=== PATIENT | male | born 1990 | race Caucasian/White ===

== ENCOUNTER 2016-11-15 10:51 | Emergency (ER) | payer SELFPAY ==
--- NOTE | 2016-11-15 11:04 | ER Document Report ---
ED Medical Screen (RME) - General Stated Complaint: EYE IRRITATION Mode of Arrival: Ambulatory Information source: Patient Notes: c/o right eye irritation that started 4 days ago. 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 Endorses eye redness, FB sensation, excessive tearing but denies drainage or blurred vision or changes in vision. Wears contact but was not wearing them at the time of incident and has not worn it since. Has tried visine which did provide mild relief. I have greeted and performed a rapid initial assessment of this patient. A comprehensive ED assessment and evaluation of the patient, analysis of test results and completion of the medical decision making process will be conducted by additional ED providers. TRAVEL OUTSIDE OF THE [place] IN LAST 30 DAYS: No - Related Data Allergies/Adverse Reactions: No Known Allergies Allergy (Unverified 03/11/13 01:29) Past Medical History - Immunizations Hx Diphtheria, Pertussis, Tetanus Vaccination: No Physical Exam - Vital signs Vitals: Temp Pulse Resp BP Pulse Ox 97.5 F 73 16 124/72 100 11/15/16 10:57 11/15/16 10:57 11/15/16 10:57 11/15/16 10:57 11/15/16 10:57 Course - Vital Signs Vital signs: Temp Pulse Resp BP Pulse Ox 97.5 F 73 16 124/72 100 11/15/16 10:57 11/15/16 10:57 11/15/16 10:57 11/15/16 10:57 11/15/16 10:57
[2016-11-15] MEDS ORDERED: TETRACAINE HCL 0.5% OPH SOLN 2 ML OD ONE (11:15)
[2016-11-15] MEDS ORDERED: KETOROLAC TROMETHAMINE 0.45% 4 DROP/0.4 ML DROPERETTE OD ONE (12:43)
[2016-11-15] MEDS ORDERED: BESIFLOXACIN HCL 0.6% OPH SUSP 5 ML BOTTLE OD ONE (12:43)
--- NOTE | 2016-11-15 12:48 | ER Document Report ---
ED General - General Chief Complaint: Eye Injury Stated Complaint: EYE IRRITATION Mode of Arrival: Ambulatory TRAVEL OUTSIDE OF THE [place] 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 Patient does wear glasses and contacts. Denies any. Drainage this date blurry vision with tearing and photophobia. Denies any other injuries. - Related Data Allergies/Adverse Reactions: No Known Allergies Allergy (Verified 11/15/16 11:02) Past Medical History - General Information source: Patient - Social History Smoking Status: Current Every Day Smoker Chew tobacco use (# tins/day): No Frequency of alcohol use: None Drug Abuse: None Family History: Reviewed & Not Pertinent Patient has suicidal ideation: No Patient has homicidal ideation: No Renal/ Medical History: Denies: Hx Peritoneal Dialysis Surgical Hx: Negative - Immunizations Hx Diphtheria, Pertussis, Tetanus Vaccination: Yes - 5-6 years ago Review of Systems - Review of Systems Constitutional: No symptoms reported EENT: Eye pain Cardiovascular: No symptoms reported Respiratory: No symptoms reported Gastrointestinal: No symptoms reported Genitourinary: No symptoms reported Male Genitourinary: No symptoms reported Musculoskeletal: No symptoms reported Skin: No symptoms reported Hematologic/Lymphatic: No symptoms reported Neurological/Psychological: No symptoms reported -: Yes All other systems reviewed and negative Physical Exam - Vital signs Vitals: Temp Pulse Resp BP Pulse Ox 97.5 F 73 16 124/72 100 11/15/16 10:57 11/15/16 10:57 11/15/16 10:57 11/15/16 10:57 11/15/16 10:57 Interpretation: Normal - General General appearance: Appears well, Alert - HEENT Head: Normocephalic, Atraumatic Eyes: Normal Conjunctiva: Normal Cornea: Embedded foreign body, Flourescein stain uptake Eyelashes: Normal Pupils: PERRL Visual acuity- Right eye: 20/30 -1 Visual acuity- Left eye: 20/20 Visual acuity- Both eyes: 20/15 Corrective lenses worn: Yes - Prescription Glasses - Respiratory Respiratory status: No respiratory distress Chest status: Nontender Breath sounds: Normal Chest palpation: Normal - Cardiovascular Rhythm: Regular Heart sounds: Normal auscultation Murmur: No - Abdominal Inspection: Normal Distension: No distension Bowel sounds: Normal Tenderness: Nontender Organomegaly: No organomegaly - Back Back: Normal, Nontender - Extremities General upper extremity: Normal inspection, Nontender, Normal color, Normal ROM , Normal temperature General lower extremity: Normal inspection, Nontender, Normal color, Normal ROM , Normal temperature, Normal weight bearing. No: Marcela's sign - Neurological Neuro grossly intact: Yes Cognition: Normal Orientation: AAOx4 [place] Coma Scale Eye Opening: Spontaneous Charlie Coma Scale Verbal: Oriented Charlie Coma Scale Motor: Obeys Commands [place] Coma Scale Total: 15 Speech: Normal Motor strength normal: LUE, RUE, LLE, RLE Sensory: Normal - Psychological Associated symptoms: Normal affect, Normal mood - Skin Skin Temperature: Warm Skin Moisture: Dry Skin Color: Normal Course - Re-evaluation Re-evalutation: 11/15/16 18:45 Examination of the sinus showed a foreign body at approximately 7 o'clock position. Using a 25-gauge needle was able to remove the foreign body from the cornea. Patient tolerated this procedure well. Patient will be discharged home with antibiotic drops and pain medication encouraged follow-up with ophthalmology also encouraged to not wear his contacts for approximately 2 weeks - Vital Signs Vital signs: Temp Pulse Resp BP Pulse Ox 97.8 F 67 18 120/72 99 11/15/16 12:58 11/15/16 12:58 11/15/16 12:58 11/15/16 12:58 11/15/16 12:58 Procedures - Eye Procedure Right Fluorescein applied: Right Eyes picture: 1 - Area of foreign body and fluoresceins uptake Discharge - Discharge Clinical Impression: Foreign body of right eye Qualifiers: Encounter type: initial encounter Qualified Code(s): T15.91XA - Foreign body on external eye, part unspecified, right eye, initial encounter Corneal abrasion Qualifiers: Encounter type: initial encounter Laterality: right Qualified Code(s): S05.01XA - Injury of conjunctiva and corneal abrasion without foreign body, right eye, initial encounter Condition: Good Disposition: HOME, SELF-CARE Instructions: Corneal Abrasion ([facility]), Ketorolac Tromethamine Eye Drops ([facility]) Additional Instructions: Please use the antibiotic drops given to you here in ER 1-2 drops 3 times a day for the next 10 days. Please return to the ER if you notice purulent drainage coming out of your eyes. No contacts for the next 2 weeks. You may also follow-up with the independent trader provided. Prescriptions: Hydrocodone/Acetaminophen [[place] 5-325 mg Tablet] 1 tab PO Q6 #20 tablet Ketorolac Tromethamine 0.45% [Acuvail 0.45% Oph Soln 0.4 ml/Dropperette] 1 drop OD BID 5 Days Forms: Return to Work Referrals: KRISTIN OTOOLE MD [ACTIVE STAFF] - Follow up as needed
[2016-11-15 13:06] VITALS: BP 120/72
== END 2016-11-15 13:02 | disposition home or self-care (01) ==
LOC: ER 10:51
DX: T15.01XA Foreign body in cornea, right eye, initial encounter (principal); W22.8XXA Striking against or struck by other objects, initial encounter; Y93.89 Activity, other specified; Y92.59 Other trade areas as the place of occurrence of the external cause; Y99.0 Civilian activity done for income or pay; F17.200 Nicotine dependence, unspecified, uncomplicated
CPT/HCPCS: 99283

== ENCOUNTER 2017-12-20 09:03 | Emergency (ER) | payer SELFPAY ==
[2017-12-20 09:25] VITALS: BP 112/62
[2017-12-20] MEDS ORDERED: PREDNISONE 20 MG TABLET PO ONE (09:45)
[2017-12-20] MEDS ORDERED: FAMOTIDINE 20 MG TABLET PO ONE (09:50)
--- NOTE | 2017-12-20 09:51 | ER Document Report ---
ED Skin Rash/Insect Bite/Abscs - General Chief Complaint: Rash Stated Complaint: POSSIBLE RASH Time Seen by Provider: 12/20/17 09:14 Mode of Arrival: Ambulatory Information source: Patient Notes: 27-year-old male presents to ED for complaint of poison yaquelin to the arms and calf. He states he was working on a car with a wheeze around the car and he noticed a rash the next day. He reports using calamine lotion and Benadryl both cream and by mouth. He states the last medication was last night. He is alert and oriented walks with the even steady gait speaks in full sentences. TRAVEL OUTSIDE OF THE [place] IN LAST 30 DAYS: No - HPI Patient complains to provider of: Skin rash/lesion Onset: Other - 3 days ago Onset/Duration: Gradual Quality of pain: No pain Severity: None Pain Level: Denies Skin Character: Rash Quality of rash: Itchy Identify cause: Yes - He denies any Other exposure: Poison yaquelin Exacerbated by: Denies Relieved by: Denies Similar symptoms previously: Yes Recently seen / treated by doctor: No - Related Data Allergies/Adverse Reactions: No Known Allergies Allergy (Verified 11/15/16 11:02) Past Medical History - General Information source: Patient - Social History Smoking Status: Current Every Day Smoker Cigarette use (# per day): Yes - 5 cigarettes a day Chew tobacco use (# tins/day): No Smoking Education Provided: Yes - 4 minutes Frequency of alcohol use: Occasional Drug Abuse: None 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 denies: COPD, Malignancy, Thyroid Disfunction Patient has suicidal ideation: No Patient has homicidal ideation: No - Past Medical History Cardiac Medical History: Reports: Hx Atrial Fibrillation Pulmonary Medical History: Reports: None EENT Medical History: Reports: None Neurological Medical History: Reports: None Endocrine Medical History: Reports: None Renal/ Medical History: Reports: None Malignancy Medical History: Reports None GI Medical History: Reports: None Musculoskeltal Medical History: Reports None Skin Medical History: Reports Other - [place] with skin grafts Psychiatric Medical History: Reports: None Traumatic Medical History: Reports: None Infectious Medical History: Reports: None Past Surgical History: Reports: Other - Skin grafts to murcia - Immunizations Hx Diphtheria, Pertussis, Tetanus Vaccination: Yes - 5-6 years ago Review of Systems - Review of Systems Constitutional: No symptoms reported EENT: No symptoms reported Cardiovascular: No symptoms reported Respiratory: No symptoms reported Gastrointestinal: No symptoms reported Genitourinary: No symptoms reported Male Genitourinary: No symptoms reported Musculoskeletal: No symptoms reported Skin: Rash - Bilateral arms and legs Hematologic/Lymphatic: No symptoms reported Neurological/Psychological: No symptoms reported -: Yes All other systems reviewed and negative Physical Exam - Vital signs Vitals: Temp Pulse Resp BP Pulse Ox 97.3 F 71 18 112/62 100 12/20/17 09:19 12/20/17 09:19 12/20/17 09:19 12/20/17 09:19 12/20/17 09:19 Interpretation: Normal - General General appearance: Appears well, Alert - HEENT Head: Normocephalic, Atraumatic Eyes: Normal Pupils: PERRL - Respiratory Respiratory status: No respiratory distress Chest status: Nontender Breath sounds: Normal Chest palpation: Normal - Cardiovascular Rhythm: Regular Heart sounds: Normal auscultation Murmur: No - Abdominal Inspection: Normal Distension: No distension Bowel sounds: Normal Tenderness: Nontender Organomegaly: No organomegaly - Back Back: Normal, Nontender - Extremities General upper extremity: Normal inspection, Nontender, Normal color, Normal ROM , Normal temperature General lower extremity: Normal inspection, Nontender, Normal color, Normal ROM , Normal temperature, Normal weight bearing. No: Marcela's sign - Neurological Neuro grossly intact: Yes Cognition: Normal Orientation: AAOx4 Charlie Coma Scale Eye Opening: Spontaneous Charlie Coma Scale Verbal: Oriented [place] Coma Scale Motor: Obeys Commands [place] Coma Scale Total: 15 Speech: Normal Motor strength normal: LUE, RUE, LLE, RLE Sensory: Normal - Psychological Associated symptoms: Normal affect, Normal mood - Skin Skin Temperature: Warm Skin Moisture: Dry Skin Color: Normal Character of irregularity: Maculopapular - Water-filled blister type rash, Erythematous, Urticarial Irregularity with: Tenderness Course - Re-evaluation Re-evalutation: 12/20/17 21:47 Patient had poison yaquelin rash to bilateral calves and forearms. He was treated with prednisone given a prescription for prednisone. Patient will be discharged home with prescription for prednisone instructions to wash her carefully with Delsym several times a day and use Benadryl or other means for his itching. Patient to follow-up with primary doctor for any increase in the rash or itching. - Vital Signs Vital signs: Temp Pulse Resp BP Pulse Ox 97.3 F 71 18 112/62 100 12/20/17 09:19 12/20/17 09:19 12/20/17 09:19 12/20/17 09:19 12/20/17 09:19 Discharge - Discharge Clinical Impression: Poison yaquelin dermatitis Condition: Stable Disposition: ADMITTED INPATIENT Instructions: Family Physicians / Practices Additional Instructions: Poison Yaquelin Poison yaquelin and poison oak can cause an itchy rash. This is called contact dermatitis. It's an allergy to an oil in the plant's leaves. The oil can be spread from clothing to skin, from pets to humans, or from one spot on the body to another. Washing thoroughly with soap immediately after exposure can prevent the rash. (Clothing should be washed as well.) If the oil is not removed, an itchy rash develops a few days after the exposure. Blisters may develop. Two to three weeks may be required for healing. Generally, treatment consists of: (1) an immediate thorough washing with soap to remove the oil, (2) application of a cortisone cream, and (3) antihistamines for itching. If the reaction is particularly severe, oral cortisone medicine may be required. If there are oozing areas, these can be soaked in epsom salts or Sal's solution. Call the doctor if the rash worsens despite treatment, or if signs of infection occur such as spreading redness, red streaks, swollen glands, swelling , or fever. STEROID MEDICATION: You have been given a medicine of the cortisone/steroid class. This medication is used to control inflammation or allergy. It is usually only given for a short period of time, until the acute process subsides. There are usually no side effects from short-term use of cortisone-like medications. Some persons feel an increased sense of well-being and are not sleepy at bedtime. Long-term use of cortisone medications is best avoided, unless required for a severe condition. If your condition does not remit, or relapses after the course of corticosteroid medication, you should consult your physician. ACID-SUPPRESSING MEDICATION: You have a prescription for medicine which reduces the stomach's secretion of acid. Examples include Zantac, Tagament, and Pepcid. These drugs are often used to allow healing of ulcers or esophagitis. They may be needed to prevent recurrence of ulcers in some patients, or to prevent damage from acid reflux in the esophagus. Take all medication as prescribed, even after the pain is gone. Regular antacids may be added as needed if you have symptoms while taking this medicine. These medications sometimes are prescribed for allergic reactions because they have anti-histaminic effects and relieve the rash and itching of the reaction. There are usually no side effects from this medication. But, in rare cases and particularly in the elderly, serious problems can occur. Contact your doctor if there is fever, rash, hallucinations, confusion, or unusual bruising. Contact your doctor at once if you develop lightheadedness, black or bloody stool, or bloody vomitus. ANTIHISTAMINES: An antihistamine has been given and/or prescribed to control your symptoms. Antihistamines are used for many reasons, including itching, watering eyes, runny nose, allergic swelling, hives, and insect stings. Antihistamines may cause drowsiness, especially with the first dose. Do not operate machinery or drive while under the effects of the medication. Other common side effects include dry mouth and eyes. In older persons, antihistamines can occasionally cause urinary retention, constipation, and trouble focusing the eyes. Do not combine the medication with alcohol, or with any other medication without talking to your doctor. USE OF DIPHENHYDRAMINE: The use of diphenhydramine (Benadryl) has been recommended to control allergic symptoms. The 25 mg strength is available over- the-counter, as well as the elixir. This antihistamine is used for many symptoms. It's useful for itching, watering eyes and nose, allergic swelling, hives, and insect stings. The medication can be repeated four times daily. Age Elixir (12.5 mg/tsp) 25 mg pill 2-3 yr 1/2 tsp 4-8 yr 1 tsp 9-14 yr 2 tsp one tab adult 1-2 tabs Antihistamines may cause drowsiness, especially with the first dose. Do not operate machinery or drive while under the effects of the medication. Do not combine the medication with alcohol, or with any other medication without talking to your doctor. FOLLOW-UP CARE: If you have been referred to a physician for follow-up care, call the physician s office for an appointment as you were instructed or within the next two days. If you experience worsening or a significant change in your symptoms, notify the physician immediately or return to the Emergency Department at any time for re-evaluation. Prescriptions: Famotidine [Pepcid 20 mg Tablet] 20 mg PO BID #12 tablet Prednisone [Deltasone 10 mg Tablet] 10 mg PO ASDIR PRN #21 tablet PRN Reason: Forms: Smoking Cessation Education, Return to Work
== END 2017-12-20 10:15 | disposition home or self-care (01) ==
LOC: ER 09:03
DX: L23.7 Allergic contact dermatitis due to plants, except food (principal); F17.210 Nicotine dependence, cigarettes, uncomplicated; I48.91 Unspecified atrial fibrillation
CPT/HCPCS: 99406; 99282; J7512

== ENCOUNTER 2018-06-12 09:18 | Emergency (ER) | payer SELFPAY ==
--- NOTE | 2018-06-12 09:36 | ER Document Report ---
HPI - HPI Patient complains to provider of: Cough and congestion Onset: Other - 4 days Pain Level: Denies Context: 28-year-old male smoker complaining of cough and congestion for 4 days. His has the same symptoms but is been sick for 10 days. He has no chest pain or shortness of breath. No vomiting or diarrhea. No history of asthma. Past Medical History - General Information source: Patient - Social History Smoking Status: Current Every Day Smoker Lives with: Spouse/Significant other Family History: CAD, CVA, DM, Hyperlipidemia, Hypertension - Past Medical History Cardiac Medical History: Reports: Hx Atrial Fibrillation Renal/ Medical History: Denies: Hx Peritoneal Dialysis Past Surgical History: Reports: Other - Skin grafts to [place]cia - Immunizations Hx Diphtheria, Pertussis, Tetanus Vaccination: Yes - 5-6 years ago Vertical Provider Document - CONSTITUTIONAL Agree With Documented VS: Yes Exam Limitations: No Limitations - INFECTION CONTROL TRAVEL OUTSIDE OF THE [place] IN LAST 30 DAYS: No - HEENT HEENT: Pharyngeal Erythema. negative: Conjuctival Injection, Tympanic Membrane Red, Tympanic Membrane Bulging - NECK Neck: Supple. negative: Lymphadenopathy-Left, Lymphadenopathy-Right - RESPIRATORY Respiratory: No Respiratory Distress, Wheezing - coarse on the left - CARDIOVASCULAR Cardiovascular: Regular Rate, Regular Rhythm - NEURO Level of Consciousness: Awake Course - Re-evaluation Re-evalutation: 06/12/18 11:27 Radiologist said possible left upper lobe pneumonia or atelectasis will treat with steroids inhaled bronchodilators and a azithromycin. I have explained this to the patient. 06/12/18 11:29 lungs clear after neb, moving air much more easily 06/12/18 11:30 - Vital Signs Vital signs: Temp Pulse Resp BP Pulse Ox 97.5 F 86 20 118/64 98 06/12/18 09:26 06/12/18 09:26 06/12/18 09:26 06/12/18 09:26 06/12/18 09:26 Discharge - Discharge Clinical Impression: Left lower lobe pneumonia Qualifiers: Pneumonia type: due to unspecified organism Qualified Code(s): J18.1 - Lobar pneumonia, unspecified organism Condition: Good Disposition: HOME, SELF-CARE Instructions: Azithromycin ([facility]), Inhaled Bronchodilators ([facility]), Pneumonia ([facility] ), Stop Smoking ([facility]), Steroid Medication Additional Instructions: Return to the emergency room any shortness of breath, trouble breathing, fever Azithromycin for pneumonia on the left side Albuterol metered-dose inhaler 2 puffs every 3 hours for cough and congestion Copy of imaging report given to you Prescriptions: Albuterol Sulfate [Proair HFA Inhalation Aerosol 8.5 gm MDI] 2 puff IH Q3HP PRN #1 [id number].[id number] PRN Reason: Azithromycin [Zithromax] 250 mg PO DAILY #6 tablet Prednisone [Deltasone 20 mg Tablet] 40 mg PO DAILY #8 tablet Forms: Return to Work
[2018-06-12] MEDS ORDERED: PREDNISONE 20 MG TABLET PO ONE (09:42)
[2018-06-12] MEDS ORDERED: ALBUTEROL SULFATE 0.083% NEB 2.5 MG/3 ML AMPUL NEB ONE (09:42)
[2018-06-12] MEDS ORDERED: IPRATROPIUM/ALBUTEROL 0.5-2.5 MG/3 ML AMPUL NEB ONE (09:42)
--- NOTE | 2018-06-12 11:01 | RADIOLOGY REPORT (SQ) ---
EXAM DESCRIPTION: CHEST 2 VIEWS COMPLETED DATE/TIME: 06/12/2018 10:48 am REASON FOR STUDY: cough, sick for 5 days COMPARISON: None. EXAM PARAMETERS: NUMBER OF VIEWS: two views TECHNIQUE: Digital Frontal and Lateral radiographic views of the chest acquired. RADIATION DOSE: NA LIMITATIONS: none FINDINGS: LUNGS AND PLEURA: There is focal asymmetric airspace disease in the left upper lobe just s uperior to the hilum. There is a pectus deformity. No pneumothorax or effusions. MEDIASTINUM AND HILAR STRUCTURES: No masses or contour abnormalities. HEART AND VASCULAR STRUCTURES: Heart normal size. No evidence for failure. BONES: No acute findings. HARDWARE: None in the chest. OTHER: No other significant finding. IMPRESSION: Focal asymmetric opacity in the left upper lobe most likely representing atelectasis or pneumonia. TECHNICAL DOCUMENTATION: JOB ID: [id number] [employer]- All Rights Reserved Reading location - IP/workstation name: [email or web address]
[2018-06-12 11:26] VITALS: BP 111/59
== END 2018-06-12 11:32 | disposition home or self-care (01) ==
LOC: ER 09:18
DX: J18.1 Lobar pneumonia, unspecified organism (principal); R05 Cough; F17.200 Nicotine dependence, unspecified, uncomplicated
CPT/HCPCS: 94640; 99283; 71046; J7512; J7620

== ENCOUNTER 2019-02-17 13:08 | Emergency (ER) | payer SELFPAY ==
[2019-02-17 13:26] VITALS: BP 125/62
[2019-02-17] MEDS ORDERED: DEXAMETHASONE SOD PHOS INJ 10 MG/1 ML VIAL IM ONE (15:21)
--- NOTE | 2019-02-17 15:27 | ER Document Report ---
HPI - HPI Time Seen by Provider: 02/17/19 15:03 Pain Level: 0 Notes: Patient presents the emergency department after being exposed to poison yaquelin. Patient has a rash to his bilateral arms, bilateral legs and torso. Patient reports that he is allergic to poison yaquelin. Patient denies any cough, congestion, difficulty breathing or difficulty swallowing. - CONSTITUTIONAL Constitutional: DENIES: Fever, Chills - EENT EENT: DENIES: Sore Throat, Ear Pain, Eye problems - NEURO Neurology: DENIES: Headache, Weakness, Vision blurred, Dizzinesss / Vertigo - CARDIOVASCULAR Cardiovascular: DENIES: Chest pain - RESPIRATORY Respiratory: DENIES: Trouble Breathing, Coughing - GASTROINTESTINAL Gastrointestinal: DENIES: Abdominal Pain, Black / Bloody Stools - URINARY Urinary: DENIES: Dysuria, Urgency, Frequency - MUSCULOSKELETAL Musculoskeletal: DENIES: Extremity pain Past Medical History - General Information source: Patient - Social History Smoking Status: Former Smoker Chew tobacco use (# tins/day): No Frequency of alcohol use: None Drug Abuse: None Family History: CAD, CVA, DM, Hyperlipidemia, Hypertension Patient has suicidal ideation: No Patient has homicidal ideation: No - Past Medical History Cardiac Medical History: Reports: Hx Atrial Fibrillation Renal/ Medical History: Denies: Hx Peritoneal Dialysis Past Surgical History: Reports: Other - Skin grafts to [place] - Immunizations Hx Diphtheria, Pertussis, Tetanus Vaccination: Yes - 5-6 years ago Vertical Provider Document - CONSTITUTIONAL Notes: PHYSICAL EXAMINATION: GENERAL: Well-appearing, well-nourished and in no acute distress. HEAD: Atraumatic, normocephalic. EYES: Pupils equal round extraocular movements intact, conjunctiva are normal. ENT: Nares patent NECK: Normal range of motion LUNGS: No respiratory distress Musculoskeletal: Normal range of motion NEUROLOGICAL: Normal speech, normal gait. PSYCH: Normal mood, normal affect. SKIN: Maculopapular rash to bilateral arms, legs, abdomen. - INFECTION CONTROL TRAVEL OUTSIDE OF THE [place] IN LAST 30 DAYS: No Course - Re-evaluation Re-evalutation: Exam consistent with poison yaquelin exposure. - Vital Signs Vital signs: Temp Pulse Resp BP Pulse Ox 98.4 F 72 16 125/62 98 02/17/19 13:24 02/17/19 13:24 02/17/19 13:24 02/17/19 13:24 02/17/19 13:24 Discharge - Discharge Clinical Impression: Allergic dermatitis due to poison yaquelin Condition: Stable Disposition: HOME, SELF-CARE Additional Instructions: Poison Yaquelin Poison yaquelin and poison oak can cause an itchy rash. This is called contact dermatitis. It's an allergy to an oil in the plant's leaves. The oil can be spread from clothing to skin, from pets to humans, or from one spot on the body to another. Washing thoroughly with soap immediately after exposure can prevent the rash. (Clothing should be washed as well.) If the oil is not removed, an itchy rash develops a few days after the exposure. Blisters may develop. Two to three weeks may be required for healing. Generally, treatment consists of: (1) an immediate thorough washing with soap to remove the oil, (2) application of a cortisone cream, and (3) antihistamines for itching. If the reaction is particularly severe, oral cortisone medicine may be required. If there are oozing areas, these can be soaked in epsom salts or Sal's solution. Call the doctor if the rash worsens despite treatment, or if signs of infection occur such as spreading redness, red streaks, swollen glands, swelling, or fever. Prescriptions: Prednisone [Sterapred Ds] 1 pkg PO ASDIR PRN 12 Days tab.[id number].pk PRN Reason: Triamcinolone Acetonide 1 appful TP TID #80 oint...g.
== END 2019-02-17 16:06 | disposition home or self-care (01) ==
LOC: ER 13:08
DX: L23.7 Allergic contact dermatitis due to plants, except food (principal)
CPT/HCPCS: 99282; 96372; J1100

== ENCOUNTER 2020-05-08 22:02 | Emergency (ER) | payer SELFPAY ==
[2020-05-08] MEDS ORDERED: CLINDAMYCIN 600 MG/D5W RTU 600 MG/50 ML RTUPB IV ONE (23:33)
--- NOTE | 2020-05-08 23:39 | ER Document Report ---
ED Medical Screen (RME) - General Chief Complaint: Mouth Problem Stated Complaint: MOUTH PROBLEM Notes: 30-year-old male presenting today with right-sided cheek swelling and tooth abscess. States that he has had tooth pain for a couple weeks. He noticed some swelling and tenderness of his right cheek since Saturday. He has attempted to take fish amoxicillin to help improve his symptoms. He denies any fevers or chills. His right upper teeth are cracked. He has difficulty opening his mouth. Right cheek is tender to palpation and obviously swollen. He has had no fevers or chills. No associated nausea or vomiting. PE: Right cheek tender, swollen, Abscess on upper front gum line. Trismus I have greeted and performed a rapid initial assessment of this patient. A comprehesive ED assessment and evaluation of this patient, analysis of test results and completion of the medical decision-making process will be conducted by additional ED providers. TRAVEL OUTSIDE OF THE [place] IN LAST 30 DAYS: No - Related Data Allergies/Adverse Reactions: No Known Allergies Allergy (Verified 05/08/20 23:10) Past Medical History - Social History Frequency of alcohol use: Rare Drug Abuse: None - Past Medical History Cardiac Medical History: Reports: Hx Atrial Fibrillation Renal/ Medical History: Denies: Hx Peritoneal Dialysis Past Surgical History: Reports: Hx Oral Surgery, Other - Skin grafts to murcia - Immunizations Hx Diphtheria, Pertussis, Tetanus Vaccination: Yes - 5-6 years ago Physical Exam - Vital signs Vitals: Temp Pulse Resp BP Pulse Ox 98.8 F 64 15 140/78 H 100 05/08/20 22:33 05/08/20 22:33 05/08/20 22:33 05/08/20 22:33 05/08/20 22:33 Course - Vital Signs Vital signs: Temp Pulse Resp BP Pulse Ox 98.8 F 64 15 140/78 H 100 05/08/20 23:10 05/08/20 22:33 05/08/20 22:33 05/08/20 22:33 05/08/20 22:33
[2020-05-08 23:59] LABS: ABSOLUTE EOSINOPHILS # (AUTO) 0.5 10^3/uL (0.0-0.6); ABSOLUTE LYMPHOCYTES (AUTO) 1.9 10^3/uL (0.5-4.7); ABSOLUTE NEUT (AUTO) 8.9 10^3/uL (1.7-8.2); BASOPHILS % (AUTO) 0.2 % (0-2); EOSINOPHILS % (AUTO) 3.8 % (0-6); HEMATOCRIT 46.1 % (37.9-51.0); HEMOGLOBIN 15.7 g/dL (13.5-17.0); LYMPHOCYTES % (AUTO) 15.4 % (13-45); MEAN CORPUSCULAR HEMOGLOBIN 30.5 pg (27.0-33.4); MEAN CORPUSCULAR VOLUME 90 fl (80-97); MONOCYTES % (AUTO) 8.1 % (3-13); PLATELET COUNT 219 10^3/uL (150-450); RED BLOOD COUNT 5.13 10^6/uL (4.35-5.55); RED CELL DISTRIBUTION WIDTH 12.9 % (11.5-14.0); SEGMENTED NEUTROPHILS % (AUTO) 72.5 % (42-78); TOTAL CELLS COUNTED % (AUTO) 100 %; WHITE BLOOD COUNT 12.3 10^3/uL (4.0-10.5)
[2020-05-09 00:05] LABS: ALBUMIN 4.8 g/dL (3.5-5.0); ALKALINE PHOSPHATASE 84 U/L (38-126); ANION GAP 9 (5-19); ASPARTATE AMINO TRANSFERASE 26 U/L (17-59); BILIRUBIN,DIRECT 0.1 mg/dL (0.0-0.4); BILIRUBIN,TOTAL 0.5 mg/dL (0.2-1.3); BLOOD UREA NITROGEN 15 mg/dL (7-20); CALCIUM 9.9 mg/dL (8.4-10.2); CARBON DIOXIDE 29 mmol/L (22-30); CHLORIDE 103 mmol/L (98-107); GLUCOSE 99 mg/dL (75-110); POTASSIUM 4.3 mmol/L (3.6-5.0)
--- NOTE | 2020-05-09 00:37 | RADIOLOGY REPORT (SQ) ---
EXAM DESCRIPTION: [facility]Lex: CT MAXILLOFACIAL WITH IV CONTRAST CLINICAL HISTORY: 30 years Male; right cheek swelling, concern for abscess TECHNIQUE: High resolution axial CT of the face with intravenous contrast, with sagittal and coronal reformatted images. All CT scans at this facility use dose modulation, iterative reconstruction, and/or weight based dosing when appropriate to reduce radiation dose to as low as reasonably achievable. COMPARISON: None. FINDINGS: At the right lateral margin of the maxilla there is a peripherally enhancing low-density area 1.3 cm diameter, immediately adjacent to the right 2nd premolar. The tooth as dental caries and has a periapical lucency, with destruction of the overlying cortex, typical for periapical abscess. This is likely responsible for the soft tissue abscess. There is diffuse right facial edema surrounding the fluid collection. Several nonenlarged Level One reactive lymph nodes are noted. Dental caries are noted in several other teeth, but there are no additional periapical lucencies. No acute facial fractures. Paranasal sinuses are clear. No retro-orbital edema or hematoma. IMPRESSION: 1. 1.3 cm right facial abscess adjacent to a periapical abscess of the right maxillary 2nd premolar.
[2020-05-09] MEDS ORDERED: HYDROMORPHONE HCL INJ/PF 2 MG/ML AMPULE IV ONE (01:28)
[2020-05-09] MEDS ORDERED: ONDANSETRON HCL INJ/PF 4 MG/2 ML SDV IV ONE (01:29)
[2020-05-09] MEDS ORDERED: BUPIVACAINE HCL 0.5 % INJ/PF 30 ML SDV INJ ONE (01:30)
[2020-05-09] MEDS ORDERED: HYDROCODONE/ACETAMINOPHEN 5-325 MG (6 TAB/ER DISP) PO PRN (02:13)
--- NOTE | 2020-05-09 02:22 | ER Document Report ---
Entered by NICK VOGEL SCRIBE 05/09/20 0134 Acting as scribe for:AMADOR CHADWICK IV, MD ED Oral Problem - General Chief Complaint: Mouth Problem Stated Complaint: MOUTH PROBLEM Time Seen by Provider: 05/09/20 01:08 Mode of Arrival: Ambulatory Information source: Patient Notes: This 30 year old male patient presents to the ED today with complaints of right cheek swelling and pain related to a tooth abscess that started x1 week ago. Denies fever, chills, nausea, or vomiting. TRAVEL OUTSIDE OF THE [place] IN LAST 30 DAYS: No - Related Data Allergies/Adverse Reactions: No Known Allergies Allergy (Verified 05/08/20 23:10) Past Medical History - General Information source: Patient, [facility] Records - Social History Smoking Status: Current Every Day Smoker Smoking Education Provided: No Frequency of alcohol use: Rare Drug Abuse: None Family History: Reviewed & Not Pertinent, CAD, CVA, DM, Hyperlipidemia, Hypertension Patient has suicidal ideation: No Patient has homicidal ideation: No - Past Medical History Cardiac Medical History: Reports: Hx Atrial Fibrillation Past Surgical History: Reports: Hx Oral Surgery, Other - Skin grafts to murcia - Immunizations Hx Diphtheria, Pertussis, Tetanus Vaccination: Yes - 5-6 years ago Review of Systems - Review of Systems Constitutional: See HPI. denies: Chills, Fever EENT: See HPI, Dental problem, Other - Facial swelling Cardiovascular: No symptoms reported Respiratory: No symptoms reported Gastrointestinal: See HPI. denies: Nausea, Vomiting Genitourinary: No symptoms reported Male Genitourinary: No symptoms reported Musculoskeletal: No symptoms reported Skin: No symptoms reported Hematologic/Lymphatic: No symptoms reported Neurological/Psychological: No symptoms reported -: Yes All other systems reviewed and negative Physical Exam - Vital signs Vitals: Temp Pulse Resp BP Pulse Ox 98.8 F 64 15 140/78 H 100 05/08/20 22:33 05/08/20 22:33 05/08/20 22:33 05/08/20 22:33 05/08/20 22:33 - General General appearance: Alert In distress: None - HEENT Head: Atraumatic, Other - Obvious right cheek swelling Eyes: Normal Pupils: PERRL Mouth/Lips: Other - General poor dentition; Area of swelling noted to the buccal crease near the region of the 2nd premolar and right upper jaw - Respiratory Respiratory status: No respiratory distress Chest status: Nontender Breath sounds: Normal Chest palpation: Normal - Cardiovascular Rhythm: Regular Heart sounds: Normal auscultation Murmur: No Friction rub: No Gallop: None auscultated - Abdominal Inspection: Normal Distension: No distension Bowel sounds: Normal Tenderness: Nontender - Abdomen soft Organomegaly: No organomegaly - Back Back: Normal, Nontender - Extremities General upper extremity: Normal inspection General lower extremity: Normal inspection - Neurological Neuro grossly intact: Yes Orientation: AAOx4 [place] Coma Scale Eye Opening: Spontaneous [place] Coma Scale Verbal: Oriented [place] Coma Scale Motor: Obeys Commands [place] Coma Scale Total: 15 - Psychological Associated symptoms: Normal affect, Normal mood - Skin Skin Temperature: Warm Skin Moisture: Dry Skin Color: Normal Course - Re-evaluation Re-evalutation: 05/09/20 02:06 Results of ED MSE discussed with patient. All questions were answered prior to discharge. Emergency signs and symptoms, reasons to return to the emergency department discussed with patient. - Vital Signs Vital signs: Temp Pulse Resp BP Pulse Ox 98.8 F 64 15 140/78 H 100 05/08/20 23:10 05/08/20 22:33 05/08/20 22:33 05/08/20 22:33 05/08/20 22:33 - Laboratory Result Diagrams: 05/08/20 23:40 05/08/20 23:40 Laboratory results interpreted by me: 05/08/20 23:40 WBC 12.3 H Absolute Neuts (auto) 8.9 H - Diagnostic Test Radiology reviewed: Reports reviewed Procedures - Incision and Drainage Right Face Time completed: 02:07 - area of pointing in region of right upper buccal crease incised Type: Simple Anesthetic type: Other - Hurricaine spray mL's of anesthetic: 3 Blade size: 11 Incision Method: Incision made by scalpel Amount/type of drainage: ten cc of purulent drainage noted immediately upon incision Notes: 05/09/20 02:09 10 cc of purulent drainage drained immediately with incision Discharge - Discharge Clinical Impression: Dental abscess Condition: Stable Disposition: HOME, SELF-CARE Instructions: Oral Narcotic Medication ([facility]) Additional Instructions: Return to the Emergency Department without delay if any worse. You can contact the [facility]. The number is with your discharge paperwork to schedule a follow-up appointment to be seen in 10 days. HOME CARE INSTRUCTIONS & INFORMATION: Thank you for choosing us for your medical needs. We hope you're satisfied with the care you received. After you leave, you must properly care for your problem and, at the same time, observe its progress. Any condition can change. Some illnesses can change rapidly over hours or days. If your condition worsens, return to the Emergency Department or see your physician promptly. ABOUT YOUR X-RAYS AND EKG'S: If you had an EKG or X-rays taken, they have been read by the Emergency Physician. The X-rays and EKG's will also be read by a Radiologist or Bond Clerk within 24 hours. If discrepancies are noted, you will be notified by telephone. Please be certain the ED has a correct telephone number & address where you can be reached. Also, realize that some fractures or abnormalities do not show up on initial X-rays. If your symptoms continue, see your physician. ABOUT YOUR LABORATORY TEST: If you had laboratory tests, the results have been reviewed by the Emergency Physician. Some test results (for example cultures) may not be available for several days. You will be contacted if any test result shows you need additional treatment. Please be certain the ED has a correct telephone number and address where you can be reached. ABOUT YOUR MEDICATIONS: You will receive instructions on how to take your medicine on the prescription label you receive. Additional information may be provided by the Pharmacy. If you have questions afterwards, call the ED for clarification or further instructions. Some prescribed medications may cause drowsiness. Do not perform tasks such as driving a car or operating machinery without consulting your Pharmacist. If you feel you need a refill of pain medication, your condition will need re-evaluation. Please do not call for a refill of any medication. ABOUT YOUR SIGNATURE: Signature of this document acknowledges to followin. Understanding that you received emergency treatment and that you may be released before al medical problems are known or treated. Please be certain the ED has a correct phone number & address where you can be reached. 2. Acknowledgement that you will arrange for follow-up care as recommended. 3. Authorization for the Emergency Physician to provide information to your follow-up Physician in order to maximize your care. AT ANY TIME, IF YOUR SYMPTOMS CHANGE SIGNIFICANTLY OR WORSEN OR YOU DEVELOP NEW SYMPTOMS, RETURN TO THE EMERGENCY DEPARTMENT IMMEDIATELY FOR RE-EVALUATION. OUR GOAL IS TO PROVIDE EXCELLENT MEDICAL CARE! WE HOPE THAT WE HAVE MET YOUR EXPECTATIONS DURING YOUR EMERGENCY DEPARTMENT VISIT AND THAT YOU FEEL YOU HAVE RECEIVED EXCELLENT CARE! Dental Infection or Abscess You have an infection, perhaps an abscess (pus formation) of the gum around one of your teeth, which is probably decayed. If there is an abscess, it may drain on its own or it may need to be opened or lanced. Severe swelling or drainage around a tooth usually means a deep dental abscess which usually requires evaluation and treatment by a dentist or oral surgeon. Antibiotics may be prescribed while awaiting dental treatment. If you develop high fever with chills, worsening pain, or increasing swelling in the area, see a dentist or oral surgeon immediately or return to the Emergency Department immediately. Prescriptions: Hydrocodone/Acetaminophen [[place] 5-325 mg Tablet] 1 tab PO Q6HP PRN #12 tablet PRN Reason: pain Clindamycin HCl [Cleocin 150 mg Capsule] 450 mg PO TID 10 Days #90 capsule Forms: Return to Work I personally performed the services described in the documentation, reviewed and edited the documentation which was dictated to the scribe in my presence, and it accurately records my words and actions.
[2020-05-09 02:39] VITALS: BP 131/75
== END 2020-05-09 02:37 | disposition home or self-care (01) ==
LOC: ER 22:02
DX: K04.7 Periapical abscess without sinus (principal); F17.200 Nicotine dependence, unspecified, uncomplicated
CPT/HCPCS: 99285; 96375; 96365; 36415; 87040; 83605; 85025; 80053; 70487; 40800; J3490; J1170; J2405